=== PATIENT | female | born 1990 | race Caucasian/White ===

== ENCOUNTER → 2022-07-27 09:36 | Outpatient (CLI) | payer BC, SELFPAY ==
[2022-07-27 10:14] LABS: Basophils # 0.1 K/mm3 (0-0.2); Basophils % 1.1 % (0.1-2.0); Eosinophils # 0.2 K/mm3 (0.0-0.4); Eosinophils % 4.2 % (0.1-12.0); Hematocrit 39.7 % (37.0-47.0); Hemoglobin 12.7 g/dL (12.2-16.2); Lymphocytes # 1.7 K/mm3 (0.7-4.5); Lymphocytes % 33.8 % (10-50); Mean Corpuscular Volume 99.9 fl (81-99); Mean Platelet Volume 7.7 fl (7.4-10.4); Monocytes # 0.3 K/mm3 (0.1-1.0); Monocytes % 6.4 % (1.7-9.3); Neutrophils # 2.7 K/mm3 (1.8-7.8); Neutrophils % 54.7 % (37.0-80.0); Platelet Count 277 K/mm3 (142-424); Red Blood Count 3.98 M/mm3 (4.20-5.40); Red Cell Distribution Width 12.8 % (11.5-17.5)
[2022-07-27 10:41] LABS: Chloride 107 mmol/L (98-107); Potassium 4.3 mmoL/L (3.5-5.1); Sodium 141 mmol/L (136-145)
[2022-07-27 10:44] LABS: Alanine Aminotransferase 35 U/L (12-78); Albumin Level 3.8 g/dl (3.5-5.0); Albumin/Globulin Ratio 1.5 (1.1-1.8); Alkaline Phosphatase 45 U/L (38-126); Anion Gap 10.3 mEq/L (5-15); Aspartate Amino Transferase 35 U/L (14-36); Bilirubin,Total 0.3 mg/dl (0.2-1.3); Blood Urea Nitrogen 12 mg/dl (7-17); Calcium 8.5 mg/dl (8.4-10.2); Carbon Dioxide 28 mmol/L (22.0-30.0); Estimated Glomerular Filt Rate 83 ml/min (>60); GFR (African American) 101 ML/MIN (>60); Globulin 2.5 g/dL (1.3-3.2); Glucose 86 mg/dl (74-100); Total Protein,Serum 6.3 g/dl (6.3-8.2)
[2022-07-27 11:14] LABS: Thyroid Stimulating Hormone 0.72 uIU/mL (0.465-4.68)
== END ==
PROVIDERS: PCP Family Medicine; Visit Provider Specialist
DX: F32.A Depression, unspecified (principal); F41.9 Anxiety disorder, unspecified; G51.4 Facial myokymia; Z86.69 Personal history of other diseases of the nervous system and sense organs
CPT/HCPCS: 36415; 80053; 84443; 85025

== ENCOUNTER → 2022-08-18 09:07 | Outpatient (CLI) | payer BC, SELFPAY ==
--- NOTE | 2022-08-18 09:13 | MR_ITS ---
FINAL REPORT CLINICAL HISTORY: Seizures 15 ml prohance FINDINGS: Multiplanar MR imaging of the brain was performed without and with contrast. Hippocampus formations appear symmetric. There is no evidence of intracranial hemorrhage or mass. No abnormal extra-axial fluid collection is seen. The ventricular size is within normal limits. There is no evidence of shift of the midline structures. The posterior fossa and brainstem have an unremarkable appearance. No area of abnormal restricted diffusion is identified. No abnormal contrast enhancement is seen. There is extensive mucoperiosteal thickening of the bilateral maxillary sinuses and ethmoid air cells consistent with chronic sinusitis. IMPRESSION: No acute intracranial abnormality identified. Extensive changes of chronic maxillary and ethmoid sinusitis. Reviewed, Interpreted and Dictated by Mateo Camp MD Transcribed by Gail Olsen Authenticated and . [facility]
== END ==
PROVIDERS: PCP Family Medicine; Visit Provider Specialist
DX: Z86.69 Personal history of other diseases of the nervous system and sense organs (principal)
CPT/HCPCS: 70553; A9576